=== PATIENT | female | born 1950 | race African-American/Black ===

== ENCOUNTER 2017-09-27 11:52 | Emergency (ER) | payer BC ==
[~2017-09-27] VITALS: Ht 177.8 cm; Wt 73.0 kg
[2017-09-27] MEDS ORDERED: SODIUM CHLOR 0.9% 1000 ML INJ 1,000 ML IV SCH (12:10)
[2017-09-27] MEDS ORDERED: MORPHINE SULFATE 4 MG/ML INJ IV PUSH ONE (12:15)
[2017-09-27] MEDS ORDERED: METOCLOPRAMIDE HCL 10 MG/2 ML VIAL IV PUSH ONE ×2 (12:15→15:00)
[2017-09-27 12:23] VITALS: BP 155/83; PULSE 93; RESP 17; TEMP 99.3; O2SAT 98
[2017-09-27 12:54] LABS: BASOPHIL % 0.4 % (0.0-2.0); EOSINOPHIL % 0.3 % (0.0-4.0); HEMATOCRIT 28.4 % (35.0-46.0); HEMOGLOBIN 9.5 GM/DL (11.6-15.3); LYMPH % 11.9 % (9.0-44.0); LYMPHOCYTE # 1.4 TH/MM3 (1.0-4.8); MEAN CELL VOLUME 93.1 FL (80.0-100.0); MEAN CORPUSCULAR HEMOGLOBIN 31.2 PG (27.0-34.0); MEAN CORPUSCULAR HGB CONC 33.5 % (32.0-36.0); MEAN PLATELET VOLUME 6.7 FL (7.0-11.0); MONO % 4.8 % (0.0-8.0); MONOCYTE # 0.6 TH/MM3 (0-0.9); NEUT % 82.6 % (16.0-70.0); PLATELET COUNT 272 TH/MM3 (150-450); RED BLOOD COUNT 3.05 MIL/MM3 (4.00-5.30); RED CELL DISTRIBUTION WIDTH 15.2 % (11.6-17.2)
[2017-09-27 13:07] LABS: ALBUMIN 3.4 GM/DL (3.4-5.0); ALT (GPT) 19 U/L (10-53); AST (GOT) 12 U/L (15-37); BICARBONATE 24.3 MEQ/L (21.0-32.0); BLOOD UREA NITROGEN 6 MG/DL (7-18); CALCIUM 8.6 MG/DL (8.5-10.1); CHLORIDE 108 MEQ/L (98-107); CREATININE 0.74 MG/DL (0.50-1.00); GLOMERULAR FILTRATION RATE 78 ML/MIN (>89); GLUCOSE,RANDOM 89 MG/DL (74-106); SODIUM (NA) 141 MEQ/L (136-145)
[2017-09-27 13:09] LABS: ALKALINE PHOSPHATASE 122 U/L (45-117); TOTAL BILIRUBIN ADULT 0.3 MG/DL (0.2-1.0); TOTAL PROTEIN 7.3 GM/DL (6.4-8.2)
[2017-09-27 13:38] VITALS: BP 155/83; PULSE 93; RESP 16; O2SAT 100
--- NOTE | 2017-09-27 13:47 | PD ---
HPI Chief Complaint: Abdominal Pain Time Seen by Provider: 12:03 Travel History International Travel<30 days: No Contact w/Intl Traveler<30days: No Traveled to known affect area: No History of Present Illness HPI 67-year-old female that presents to the ED for evaluation of right upper quadrant abdominal pain. Per patient she is currently visiting from [facility]. Per patient she is here on vacation and she is a cancer patient secondary to ovarian cancer. She states that she is receiving chemo on her last chemo was 2 weeks ago. She has been feeling well until the past 2 days has been developing this severe pain on her right upper quadrant. She denies ever having this before. She states that she still has her gallbladder. Per patient the pain is significant and causes 10 out of 10 pain. Per patient she is been taking ibuprofen with minimal relief. She states that she does take chronic pain medications but she did not think that she needed them at that time bring them with her as she has not had any pain since being here until yesterday. Denies any bowel movement issues. No chest pain or shortness of breath. Has a port. Denies any other medical issues at this time. Allergies to medication. Pain does not radiate and stays in the right upper quadrant. PFSH Past Medical History Asthma: Yes Cardiovascular Problems: Yes (htn) Chemotherapy: Yes (current, last dose 2 wks ago) Diminished Hearing: No GERD: Yes Hypertension: Yes Respiratory: Yes (asthma) Influenza Vaccination: Yes ?: Not Past Surgical History Gynecologic Surgery: Yes (scope for ovarian ca) Hysterectomy: Yes Social History Alcohol Use: No Tobacco Use: No Substance Use: No Allergies-Medications (Allergen,Severity, Reaction): Coded Allergies: No Known Allergies (Unverified , 09/27/17) Reported Meds & Prescriptions Reported Meds & Active Scripts Active Zofran Odt (Ondansetron Odt) 4 Mg Tab 4 Mg SL Q6HR PRN Percocet (Oxycodone-Acetaminophen) 5-325 mg Tab 1 Tab PO Q6H PRN Review of Systems Except as stated in HPI: all other systems reviewed are Neg Physical Exam Narrative GENERAL: SKIN: Warm and dry. HEAD: Atraumatic. Normocephalic. EYES: Pupils equal and round. No scleral icterus. No injection or drainage. ENT: No nasal bleeding or discharge. Mucous membranes pink and moist. Tongue is midline. No uvula deviation. NECK: Trachea midline. No JVD. CARDIOVASCULAR: Regular rate and rhythm. No murmurs, S3, S4. RESPIRATORY: No accessory muscle use. Clear to auscultation. Breath sounds equal bilaterally. GASTROINTESTINAL: Abdomen soft, reproducible right upper quadrant pain with deep palpation, nondistended. Hepatic and splenic margins not palpable. MUSCULOSKELETAL: Extremities without clubbing, cyanosis, or edema. No obvious deformities. Full range of motion of the upper and lower extremities bilaterally. 2+ pulses bilaterally. NEUROLOGICAL: Awake and alert. No obvious cranial nerve deficits. Motor grossly within normal limits. Five out of 5 muscle strength in the arms and legs. Normal speech. PSYCHIATRIC: Appropriate mood and affect; insight and judgment normal. Data Data Last Documented VS Vital Signs Date Time Temp Pulse Resp B/P (MAP) Pulse Ox O2 Delivery O2 Flow Rate FiO2 09/27/17 13:38 93 16 155/83 (107) 100 Room Air 09/27/17 12:23 99.3 Orders Orders Complete Blood Count With Diff (09/27/17 12:10) Comprehensive Metabolic Panel (09/27/17 12:10) Lipase (09/27/17 12:10) Lactic Acid (09/27/17 12:10) Urinalysis - C+S If Indicated (09/27/17 12:10) Ct Abd/Pel W Iv Contrast(Rout) (09/27/17 12:10) Iv Access Insert/Monitor (09/27/17 12:10) Ecg Monitoring (09/27/17 12:10) Morphine Inj (Morphine Inj) (09/27/17 12:15) Sodium Chlor 0.9% 1000 Ml Inj (Ns 1000 M (09/27/17 12:10) Metoclopramide Inj (Reglan Inj) (09/27/17 12:15) Us Abdomen Gallbladder (09/27/17 ) Iohexol 350 Inj (Omnipaque 350 Inj) (09/27/17 14:00) Hydromorphone Pf Inj (Dilaudid Pf Inj) (09/27/17 15:00) Metoclopramide Inj (Reglan Inj) (09/27/17 15:00) Ed Discharge Order (09/27/17 15:04) Labs Laboratory Tests Test 09/27/17 12:40 White Blood Count 12.0 TH/MM3 Red Blood Count 3.05 MIL/MM3 Hemoglobin 9.5 GM/DL Hematocrit 28.4 % Mean Corpuscular Volume 93.1 FL Mean Corpuscular Hemoglobin 31.2 PG Mean Corpuscular Hemoglobin Concent 33.5 % Red Cell Distribution Width 15.2 % Platelet Count 272 TH/MM3 Mean Platelet Volume 6.7 FL Neutrophils (%) (Auto) 82.6 % Lymphocytes (%) (Auto) 11.9 % Monocytes (%) (Auto) 4.8 % Eosinophils (%) (Auto) 0.3 % Basophils (%) (Auto) 0.4 % Neutrophils # (Auto) 10.0 TH/MM3 Lymphocytes # (Auto) 1.4 TH/MM3 Monocytes # (Auto) 0.6 TH/MM3 Eosinophils # (Auto) 0.0 TH/MM3 Basophils # (Auto) 0.0 TH/MM3 CBC Comment DIFF FINAL Differential Comment Blood Urea Nitrogen 6 MG/DL Creatinine 0.74 MG/DL Random Glucose 89 MG/DL Total Protein 7.3 GM/DL Albumin 3.4 GM/DL Calcium Level 8.6 MG/DL Alkaline Phosphatase 122 U/L Aspartate Amino Transf (AST/SGOT) 12 U/L Alanine Aminotransferase (ALT/SGPT) 19 U/L Total Bilirubin 0.3 MG/DL Sodium Level 141 MEQ/L Potassium Level 3.5 MEQ/L Chloride Level 108 MEQ/L Carbon Dioxide Level 24.3 MEQ/L Anion Gap 9 MEQ/L Estimat Glomerular Filtration Rate 78 ML/MIN Lactic Acid Level 0.7 mmol/L Lipase 83 U/L MDM Medical Decision Making Medical Screen Exam Complete: Yes Emergency Medical Condition: Yes Medical Record Reviewed: Yes Interpretation(s) CBC & BMP Diagram 09/27/17 12:40 Total Protein 7.3, Albumin 3.4, Calcium Level 8.6, Alkaline Phosphatase 122 H, Aspartate Amino Transf (AST/SGOT) 12 L, Alanine Aminotransferase (ALT/SGPT) 19, Total Bilirubin 0.3 Last Impressions Abdomen/Pelvis CT 09/27/17 1210 Signed Impressions: CONCLUSION: 1. Right pelvic mass measuring 4.1 x 3.6 x 3.2 cm. Patient reports prior carci noma of the ovary. This lesion is worrisome for malignancy. Possible ovarian in nature. Outpatient PET CT could be considered to further assess. 2. Colonic diverticulosis. 3. Prior hysterectomy. Gall Bladder Ultrasound 09/27/17 0000 Signed Impressions: CONCLUSION: 1. Normal exam. Differential Diagnosis Right upper quadrant abdominal pain versus abdominal pain versus acute abdomen versus cholecystitis versus Cholelithiasis versus cancer pain versus obstruction Narrative Course 67-year-old female that presents to the ED for evaluation of right upper quadrant pain. Patient was properly examined and was found to have signs and symptoms concerning for gallbladder disease. Labs and imaging ordered. Labs and imaging showed no sign of acute disease alert and what appears to be ovarian mass. Patient is known about this. Patient has ovarian cancer. Unclear etiology of the pain with possible referred pain from the mass. My attending was made aware of findings and agrees with plan. Patient was given pain medication here with some relief. She was given prescription for Percocet and Zofran. Told to follow-up closely with her oncologist when she gets home. See ED worsening symptoms. Follow-up with PCP. Diagnosis Primary Impression: Abdominal pain Qualified Codes: R10.11 - Right upper quadrant pain Patient Instructions: General Instructions, Narcotic given in the ED Additional Instructions: Take medications as prescribed. Follow-up with PCP. See ED for any worsening symptoms. Do not drink or drive while taking pain medication. Apply ice or heat as needed for pain Med/Other Pt SpecificInfo: Prescription(s) given Scripts Ondansetron Odt (Zofran Odt) 4 Mg Tab 4 MG SL Q6HR Y for Nausea/Vomiting, #30 TAB 0 Refills Prov: Carlo Franco MD 09/27/17 Oxycodone-Acetaminophen (Percocet) 5-325 mg Tab 1 TAB PO Q6H Y for PAIN, #10 TAB 0 Refills Prov: Carlo Franco MD 09/27/17 Disposition: 01 DISCHARGE HOME Condition: Stable Jason Penn September 27, 2017 13:47
--- NOTE | 2017-09-27 13:49 | RADRPT ---
EXAM DATE: 09/27/2017 1:30 PM EDT AGE/SEX: 67 years / Female INDICATIONS: Right upper quadrant pain. CLINICAL DATA: This is the patient's initial encounter. Patient reports that signs and/or symptoms h ave been present for 3 weeks and indicates a pain score of 9/10. MEDICAL/SURGICAL HISTORY: . Hypertension. Asthma. Ovarian cancer. . Hysterectomy. COMPARISON: None MEASUREMENTS (cm x cm x cm): Liver:__ 15.7 cm length Common Bile Duct:__ 3mm FINDINGS: Liver: Normal echotexture without focal lesion or ductal dilatation. Portal Vein: Hepatopedal flow seen in portal vein. Common Duct: No intralumincal mass or stone visualized. Gallbladder: Demonstrates no wall thickening or pericholecystic fluid. No stones visualized. Pancreas: The visualized portions are within normal limits Right Kidney: No mass or hydronephrosis Other: None. CONCLUSION: 1. Normal exam. Electronically signed by: Hector Berkowitz MD 09/27/2017 1:48 PM EDT
[2017-09-27] MEDS ORDERED: IOHEXOL 350 MG/ML 10 ML VIAL (for RAD DIAG) IVCONTRAST ONE (14:00)
--- NOTE | 2017-09-27 14:28 | RADRPT ---
EXAM DATE: 09/27/2017 2:16 PM EDT AGE/SEX: 67 years / Female INDICATIONS: Right upper abdomen pain for two days. CLINICAL DATA: This is the patient's initial encounter. Patient reports that signs and symptoms have been present for 2 days and indicates a pain score of 7/10. MEDICAL/SURGICAL HISTORY: Carcinoma, ovarian. Gastroesophageal reflux disease. Hypertension. Hysterectomy. ORAL CONTRAST: No oral contrast ingested. RADIATION DOSE: 4.89 CTDI (mGy) COMPARISON: Ultrasound of the abdomen 09/27/2017. TECHNIQUE: Multiple contiguous axial images were obtained through the abdomen and pelvis following b olus infusion of 90 ml Omnipaque 350 (iohexol) nonionic water-soluble contrast as a single exam dos e. No oral contrast ingested. Using automated exposure control and adjustment of the mA and/or kV ac cording to patient size, the radiation dose was kept as low as reasonably achievable to obtain optima l diagnostic quality images. FINDINGS: Lower Lungs: The visualized lower lungs are clear. Liver: The liver has a homogeneous density without space-occupying lesion. There is no dilation of th e biliary tree. Spleen: Homogeneous density without enlargement. Pancreas: Unremarkable without mass or calcification. Kidneys: Normal in size and shape. No evidence of mass or hydronephrosis. Adrenal Glands: Unremarkable. Aorta: The aorta and proximal iliac vessels are grossly unremarkable without aneurysmal dilation. Bowel/Mesentery: Within the right upper pelvis there is a soft tissue mass that measures 4.1 x 3.6 x 3.2 cm. This mass is directly adjacent to the external iliac artery and vein. Multiple bowel loops a re seen adjacent to the mass. No significant calcifications of the mass observed. No stranding of the surrounding fat. Scattered colonic diverticuli. No acute inflammation. Small bowel and stomach are u nremarkable. Abdominal Wall: Intact. Retroperitoneum: No evidence of adenopathy in the retrocrural, para-aortic, or deep pelvic regions. Bladder: Contours are smooth. Reproductive Organs: Absent uterus. No abnormal masses or calcifications seen. Inguinal: The inguinal region is unremarkable without evidence of adenopathy. Bony Structures: A degenerative and scoliotic spine.. CONCLUSION: 1. Right pelvic mass measuring 4.1 x 3.6 x 3.2 cm. Patient reports prior carcinoma of the ovary. Thi s lesion is worrisome for malignancy. Possible ovarian in nature. Outpatient PET CT could be consider ed to further assess. 2. Colonic diverticulosis. 3. Prior hysterectomy. Electronically signed by: Hector Berkowitz MD 09/27/2017 2:26 PM EDT
[2017-09-27] MEDS ORDERED: ZOFR4TAB3 SL (14:58)
[2017-09-27] MEDS ORDERED: PERC5TAB12 PO (14:58)
[2017-09-27] MEDS ORDERED: HYDROmorphone HCL PF 2 MG/ML VIAL IV PUSH ONE (15:00)
[2017-09-27] MEDS ORDERED: SODIUM CHLORIDE 0.9% FLUSH 10 ML FLUSH IVF PRN (15:15)
[2017-09-27 15:25] LABS: BILIRUBIN, URINE NEG (NEG); BLOOD, URINE TRACE (NEG); GLUCOSE,URINE NEG (NEG); KETONE, URINE NEG (NEG); MUCUS URINE FEW /lpf (OCC); NITRITE,URINE NEG (NEG); SQUAMOUS EPITHELIAL CELL URINE 1 /hpf (0-5); URINE COLOR LIGHT-YELLOW (YELLW/STRAW); URINE LEUKOCYTE ESTERASE NEG (NEG)
[2017-09-27 16:10] VITALS: RESP 20
== END 2017-09-27 16:24 | disposition home or self-care (01) ==
LOC: NEPE 11:52
DX: C56.9 Malignant neoplasm of unspecified ovary (principal)
CPT/HCPCS: 74177; 76705; 80053; 81001; 83605; 83690; 85025; 96361; 96374; 96375; 96376; 99285; J1170; J1642; J2270; J2765; J7030; Q9967